=== PATIENT | female | born 1950 | race Caucasian/White ===

== ENCOUNTER 2020-01-01 10:37 | Day surgery (SDC) | payer MEDICARE, OTHER ==
[2019-12-30 16:03] VITALS: BMI 36.8
[2020-01-01] MEDS ORDERED: LACTATED RINGERS 1,000 ML IV ONE ×2 (11:16→14:27)
[2020-01-01] MEDS ORDERED: LIDOCAINE 1% (10MG/ML) FOR IV START IV ONE (11:16)
[2020-01-01] MEDS ORDERED: ONDANSETRON 4 MG/2 ML VIAL IVP ONE (11:20)
[2020-01-01] MEDS ORDERED: DEXAMETHASONE SOD PHOSPHATE 4 MG/ML 1 ML VIAL IVP ONE (11:21)
[2020-01-01] MEDS ORDERED: ONDANSETRON 4 MG/2 ML VIAL ONE (11:23)
[2020-01-01 11:51] LABS: Basophils % (A) 1 %; Eosinophils # (A) 0.1 k/uL (0-0.7); Eosinophils % (A) 2 %; HCT 37.9 % (34.0-46.0); HGB 12.3 gm/dL (11.4-16.0); Lymphocytes # (A) 1.1 k/uL (1.0-4.8); Lymphocytes % (A) 24 %; MCH 31.7 pg (25.0-35.0); MCHC 32.5 g/dL (31.0-37.0); MCV 97.6 fL (80.0-100.0); Mean Platelet Volume 9.4; Monocytes # (A) 0.3 k/uL (0-1.0); Monocytes % (A) 5 %; Neutrophils # (A) 3.1 k/uL (1.3-7.7); Neutrophils % (A) 66 %; Platelet Count 153 k/uL (150-450); RBC 3.89 m/uL (3.80-5.40); RDW 14.2 % (11.5-15.5); WBC 4.7 k/uL (3.8-10.6)
[2020-01-01 11:58] LABS: Calcium 9.1 mg/dL (8.4-10.2); Potassium 4.5 mmol/L (3.5-5.1)
[2020-01-01] MEDS ORDERED: PHENAZOPYRIDINE 200 MG TAB PO STA (12:30)
[2020-01-01] MEDS ORDERED: LIDOCAINE 1% INJ 10MG/ML (20 ML MDV) ONE (12:51)
[2020-01-01] MEDS ORDERED: fentaNYL (PF) 50 MCG/ML 2 ML AMP ONE (12:51)
[2020-01-01] MEDS ORDERED: SUCCINYLCHOLINE CHLORIDE 100 MG/5 ML SYR IV ONE (12:51)
[2020-01-01] MEDS ORDERED: MIDAZOLAM 2 MG/2 ML VIAL ONE (12:51)
[2020-01-01] MEDS ORDERED: HYDROmorphone (PF) 1 MG/ML ONE (12:51)
[2020-01-01] MEDS ORDERED: PROPOFOL 10 MG/ML 20 ML VIAL IV ONE (12:51)
[2020-01-01] MEDS ORDERED: FUROSEMIDE 10 MG/ML 2 ML VIAL ONE (12:51)
[2020-01-01] MEDS ORDERED: LIDOCAINE 0.5%-EPI 1:200,000 50 ML VIAL SUBMUCOSAL ONE ×2 (13:34)
[2020-01-01] MEDS ORDERED: BACITRACIN ZINC 500 UNIT/GM OINT 28.4 GM TUBE TOPICAL ONE ×2 (14:12→15:49)
[2020-01-01] MEDS: fentaNYL (PF) 50 MCG/ML 2 ML AMP IVP ONE ×4 (16:13→16:33)
[2020-01-01] MEDS ORDERED: MORPHINE SULFATE 2 MG/ML SYRINGE IVP PRN (16:22)
[2020-01-01] MEDS ORDERED: ONDANSETRON 4 MG/2 ML VIAL IVP PRN (16:26)
[2020-01-01] MEDS ORDERED: IBUPROFEN 600 MG TAB PO PRN (16:30)
[2020-01-01] MEDS ORDERED: diphenhydrAMINE 50 MG/ML 1 ML VIAL IVP ONE (16:37)
--- NOTE | 2020-01-01 16:55 | P.OP ---
Description of Procedure: PREOPERATIVE DIAGNOSES: 1.Stage 3 Utero Vaginal Prolapse. 2. Mixed Incontinence (ISD + Detrusor Instability) POSTOPERATIVE DIAGNOSES: 1. same. PROCEDURE PERFORMED: Total Vaginal Hysterectomy /Anterior / Posterior Repair / Sacrospinous Ligament suspension / TVT Sling. SURGEON: Michael Contreras MD [employer] SALESPERSON: IRIS ANESTHESIA: General. IV FLUIDS: Crystalloids. BLOOD LOSS: 150 ml. DRAINS: Hurd catheter with clear urine at the end of the procedure and a suprapubic catheter FINDINGS: Overies and tubes normal matrha in a high position and therefore not removed. SPECIMEN: Uterus and cervix. COMPLICATIONS: None. DISPOSITION: Postanesthetic Care Unit. DESCRIPTION OF PROCEDURE: The patient was taken to the operating room. General anesthesia was administered. She was placed in dorsal lithotomy position, prep and drape done in sterile fashion. 10 mL of 0.5% Lidocaine with 1:200,000 strength epinephrine was injected into the vaginal mucosa around the cervix. The decision was made with a Bovie cautery around the cervix at the junction of the vaginal mucosa. Curved Mejia scissors were used to gently dissect the anterior vaginal cervical space and the bladder was pushed up and a [place] retractor was placed to protect the bladder. Similar procedure was done on the posterior side of the cervix and the peritoneu m was entered with blunt dissection and a longbilled heavy weighted speculum was inserted to protect the rectum. Halley clamps were placed on the uterosacral ligaments these were cut and suture ligated and held with hemostats. Next the cardinal ligaments, the uterine vessels, and the tubo-ovarian round ligaments were all clamped cut and suture ligated. The ovaries were normal in size and visualization however and affixed high position and therefore were not amenable to removal vaginally. The pedicles were dry with good hemostasis. A pursestring stitch of 2-0 Vicryl was then placed to close the peritoneum. 10 mL of 0.5% Lidocaine with 1:200,000 strength epinephrine was injected into the anterior vaginal mucosa for hemostasis and to assist in dissection. A midline incision was made on the anterior vaginal mucosa from the mid-urethra to the apex. Allis clamps were placed on the edges and Metzenbaum scissors were used to separate the mucosa from the underlying tissue bilaterally. 2-0 Vicryl suture material was used to plicate the pubovesical fascia in the midline using a number of interrupted sutures. This corrected the midline defect but the patient also had bilateral paravaginal defects and therefore a vaginal paravaginal repair was done by plicating the lateral paravaginal fascia to the lateral sidewall high at the Arcus Tendineous area on each side using 2 to 3 sutures on each side. This thereby reduced the anterior vaginal wall bulge. A small incision was made on each side of the midline at the suprapubic area. With a vaginal finger to assist, the sling needles were then passed through stab incision through the facia to enter into the prevesical space to enter into the vagina lateral to the mid urethra. This was done bilaterally. The Proline mesh tape was then connected to the end of each needle and drawn back through the vaginal incision and out of the suprapubic incisions thereby placing the mesh under the mid urethra. Tension of the mesh was adjusted and the plastic sheath over the mesh was then removed. The ends of the mesh at the suprapubic incisions were trimmed below the skin surface and a 3-O Vicryl stitch was used to close the stab wound. Cystourethroscopy was performed verifying no injury to the urethra and bladder. Both ureters were found to be functioning well with good efflux bilaterally with the help of PO Pyridium Dye given data collection technician to OR and 10 mg of IV Lasix. Excess anterior vaginal mucosa was trimmed and the mucosa was then repaired with 2-0 Vicryl suture in a running fashion. A suprapubic catheter was placed and anchored. A horizontal incision was made on the posterior vaginal mucosa at the level of the hymen. The Rectovaginal space was entered and a vertical incision was made through the posterior vaginal mucosa and the Rectovaginal Septum to the apex. The large enterocele was opened and a purse string suture of 2-[address] high in a purse string fashion to close the enterocele. A second stitch was place for added security and the enterocele sac was excised with cautery. The right rectal pillar was bluntly dissected through. The bowel was retracted medially and the bladder retracted anteriorly with Briesky-Navratil retractors. The right Ischial spine and Sacrospinous ligament was identified and the ligament was grasped on its inferior border, two finger breaths medial to the ischial spine with an Allis clamp. A Capio ligature device was used to place two sutures of 0 Proline through the ligament at this level. One end of each of the Proline sutures were then fixed to the vaginal apex in a multiple helical fashion. The rectovaginal septum was closed with 2-0 Vicryl down 2/3 length of the vagina. The mucosa was trimmed and the mucosa was then closed 2/3 length of the vagina with 2-0 Vicryl. The Proline sutures were then tied thereby elevating the vaginal vault to the Sacrospinous ligament. The remainder of the rectovaginal septum was then closed to the perineum. The mucosa was closed to the mucocutaneous junction. Demarest stitches were placed on the perineum to build up support and then the skin of the perineum was closed. A bacitracin ointment-soaked vaginal packing was placed. The patient tolerated the procedure well. Sponge, lab, and needle counts were correct x 2. She was sent to postanesthetic recovery room in good condition
[2020-01-01] MEDS ORDERED: METOPROLOL SUCCINATE (ER) 25 MG TAB.ER.24H PO STA (19:56)
[2020-01-01] MEDS: HYDROcodone/APAP 5-325MG 1 EACH TAB PO PRN (20:03)
[2020-01-02] MEDS: LACTATED RINGERS 1,000 ML IV SCH ×3 (02:39→09:10)
[2020-01-02] MEDS ORDERED: LEVOTHYROXINE 50 MCG TAB PO SCH (06:30)
[2020-01-02] MEDS ORDERED: PANTOPRAZOLE 40 MG TABLET PO SCH (07:30)
[2020-01-02] MEDS ORDERED: SPIRONOLACTONE 25 MG TAB PO SCH (09:00)
[2020-01-02] MEDS ORDERED: METOPROLOL SUCCINATE (ER) 50 MG TAB.ER.24H PO SCH (09:00)
[2020-01-02] MEDS ORDERED: TORSEMIDE 20 MG TAB PO SCH (09:00)
[2020-01-02] MEDS: HYDROcodone/APAP 5-325MG 1 EACH TAB PO PRN (09:09)
[2020-01-02 12:46] VITALS: BP 103/49; PULSE 93; RESP 16; TEMP 96.9
--- NOTE | 2020-01-02 12:49 | P.DS ---
Providers Attending physician: Michael Contreras MD Patient was admitted 01/01/2024 surgery for her uterovaginal prolapse and mixed urinary incontinence (stress urinary incontinence plus detrusor instability). She underwent a vaginal hysterectomy anterior and posterior repair sacral spinous ligament vaginal vault suspension and a TVT sling. Cystoscopy was done verifying no injury to the urethra or bladder and both ureters were functional bilaterally. A suprapubic catheter was placed. Final examination at the end of the procedure showed an excellent repair without any residual defects, she had good length and width to the vagina. Patient has long-term chronic history of atrial fibrillation and is on Xarelto toe at home which was discontinued 3 days prior to the surgery. She had atrial fibrillation along with normal sinus rhythm and the women's unit felt uncomfortable. For her without telemetry. I reviewed I got a cardiac consult ation and they recommended giving her a dose of her beta fiona to bring her rhythm down a bit but other than that they felt that she was quite stable and did not require anything else cardiac-cochran. The patient has done very well on his and feels well she only received 1 dose of morphine and 2 tablets this morning of Herman for pain. She is eating and drinking her urinary output is good her vital signs are stable. She has not yet urinated on her own. She was taught how to run a urinary diary and to write down the time of urination, how much she voided on her own, and how much came from the catheter. She was taught how to use the catheter by moving the lever on the 3-way stopcock and making sure to turn it off once it was completely drained. She'll be sent home with 30 tablets of Herman 5 mg. She was told to take 2 tablets every 6 hours and then can wean down to 1 tablet every 4- 6 hours and can take regular Tylenol if needed for instead of the Herman for mild pain. She will be discharged home today in good condition she will follow-up by calling the office in 3 days (Monday01/06/20) with with a report of her voids and residuals. She has a 4 week postop appointment for examination already. Consults: 01/01/20 19:24 Consult Physician Routine Consulting Provider: Rahel Romo Consult Reason/Comments: A-Fib Do you want consulting provider notified?: Yes Primary care physician: Physician Nonstaff Plan - Discharge Summary Discharge Rx Participant: No New Discharge Prescriptions: New Torsemide [Demadex] 20 mg PO DAILY tab HYDROcodone/APAP 5-325MG [Herman 5-325] 2 each PO Q6HR PRN 3 Days #30 tab PRN Reason: Pain Continue Rivaroxaban [Xarelto] 20 mg PO 1700 Multivitamins, Thera [Multivitamin (formulary)] 1 tab PO DAILY Metoprolol Succinate [Toprol XL] 50 mg PO BID Levothyroxine Sodium [Synthroid] 50 mcg PO QAM Furosemide [Lasix] 20 mg PO DAILY Vitamin B Complex 1 each PO DAILY Spironolactone 25 mg PO QAM Omeprazole 20 mg PO QAM Ferrous Sulfate [Iron] 325 mg PO DAILY Cider Vinegar [Apple Cider Vinegar] 300 mg PO DAILY Discharge Medication List Cider Vinegar [Apple Cider Vinegar] 300 mg PO DAILY 12/30/19 [History] Ferrous Sulfate [Iron] 325 mg PO DAILY 12/30/19 [History] Furosemide [Lasix] 20 mg PO DAILY 12/30/19 [History] Levothyroxine Sodium [Synthroid] 50 mcg PO QAM 12/30/19 [History] Metoprolol Succinate [Toprol XL] 50 mg PO BID 12/30/19 [History] Multivitamins, Thera [Multivitamin (formulary)] 1 tab PO DAILY 12/30/19 [History] Omeprazole 20 mg PO QAM 12/30/19 [History] Rivaroxaban [Xarelto] 20 mg PO 1700 12/30/19 [History] Spironolactone 25 mg PO QAM 12/30/19 [History] Vitamin B Complex 1 each PO DAILY 12/30/19 [History] HYDROcodone/APAP 5-325MG [Herman 5-325] 2 each PO Q6HR PRN 3 Days #30 tab 01/02/20 [Rx] Torsemide [Demadex] 20 mg PO DAILY tab 01/02/20 [Rx] Follow up Appointment(s)/Referral(s): Michael Contreras MD [STAFF PHYSICIAN] - 4 Weeks (Pt. to call office on 03/07/19 to read voids and residual amounts.) Discharge Disposition: HOME SELF-CARE
--- NOTE | 2020-01-02 13:06 | P.CRDCN ---
History of Present Illness Consult date: 01/02/20 Consult reason: atrial fibrillation Chief complaint: Status post vaginal hysterectomy and bladder sling History of present illness: This is a pleasant 69-year-old female who follows with a parking analyst out of Dr. Glendy South. She has a documented history of hypertension, hyperlipidemia, PAD with prior SFA stenting, hypothyroidism, paroxysmal atrial fibrillation on Xarelto for anticoagulation at home, no documented coronary artery disease, cardiac cath was performed in 2012 which did not reveal any significantly obstructive coronary artery disease. Patient also has a history of chronic congestive heart failure, prior history of smoking for which the patient states she quit 7 years ago, obstructive sleep apnea, and prior cardioversions. Patient is status post vaginal hysterectomy and bladder sling. Cardiology consultation was requested because of atrial fibrillation with moderately rapid rate through the night. This morning the patient continues to be in atrial fibrillation, her heart rate in the 80s. pressure 102/40, heart rate 88, 94% on room air. White blood cell count 4.7, hemoglobin 12.3, platelet count 153. Sodium 139, potassium 4.5, BUN 27, creatinine 1.0. Patient's home medications include Estrace, iron supplementation, metoprolol sesame and 8-100 mg daily, Xarelto 20 mg daily Aldactone 25 mg daily and Demadex 25 mg daily. The patient's home medications have been resumed here, however her dose of metoprolol is 50 mg daily. At the time of my examination, patient actually feels well, she is complaining of some mild discomfort in her abdomen, but denies any shortness of breath, no palpitations, no chest discomfort or dizziness. 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 History of Any Multi-Drug Resistant Organisms: None Reported Past Surgical History: Back Surgery, Cholecystectomy, Heart Catheterization, Tonsillectomy Additional Past Surgical History / Comment(s): Partial Thyroidectomy, 2 stents in left leg 02/2019, cardioversion. Past Anesthesia/Blood Transfusion Reactions: No Reported Reaction Past Psychological History: No Psychological Hx Reported Smoking Status: Former smoker Past Alcohol Use History: None Reported Additional Past Alcohol Use History / Comment(s): Quit smoking 7 yrs ago. Past Drug Use History: None Reported - Past Family History Mother Family Medical History: Cancer Additional Family Medical History / Comment(s): Pancreatic Cancer. Brother(s) Family Medical History: Cancer Additional Family Medical History / Comment(s): Pancreatic cancer. Medications and Allergies Home Medications Medication Instructions Recorded Confirmed Type Cider Vinegar [Apple Cider Vinegar] 300 mg PO DAILY 12/30/19 01/01/20 History Ferrous Sulfate [Iron] 325 mg PO DAILY 12/30/19 01/01/20 History Furosemide [Lasix] 20 mg PO DAILY 12/30/19 01/01/20 History Levothyroxine Sodium [Synthroid] 50 mcg PO QAM 12/30/19 01/01/20 History Metoprolol Succinate [Toprol XL] 50 mg PO BID 12/30/19 01/01/20 History Multivitamins, Thera [Multivitamin 1 tab PO DAILY 12/30/19 01/01/20 History (formulary)] Omeprazole 20 mg PO QAM 12/30/19 01/01/20 History Rivaroxaban [Xarelto] 20 mg PO 1700 12/30/19 01/01/20 History Spironolactone 25 mg PO QAM 12/30/19 01/01/20 History Vitamin B Complex 1 each PO DAILY 12/30/19 01/01/20 History HYDROcodone/APAP 5-325MG [Sanford 2 each PO Q6HR PRN 3 Days #30 tab 01/02/20 Rx 5-325] Torsemide [Demadex] 20 mg PO DAILY tab 01/02/20 Rx Allergies Allergy/AdvReac Type Severity Reaction Status Date / Time codeine Allergy Rash/Hives Verified 01/01/20 11:08 Penicillins Allergy Rash/Hives Verified 01/01/20 11:08 Physical Exam Vitals: Vital Signs Temp Pulse Resp BP Pulse Ox 01/02/20 11:30 96.9 F L 93 16 103/49 98 01/02/20 08:40 97.3 F L 87 18 120/64 99 01/02/20 04:00 97.0 F L 88 17 102/48 94 L 01/02/20 00:00 98.1 F 108 H 18 135/89 100 01/01/20 21:36 98.0 F 118 H 16 133/69 99 01/01/20 20:21 98.2 F 124 H 16 130/72 01/01/20 19:51 98.4 F 119 H 16 135/74 01/01/20 19:21 98.2 F 116 H 17 121/77 95 01/01/20 18:51 107 H 16 118/62 91 L 01/01/20 18:21 106 H 16 142/71 01/01/20 18:06 105 H 16 123/67 100 01/01/20 17:51 106 H 17 131/65 97 01/01/20 17:36 97.7 F 117 H 18 138/74 100 01/01/20 17:01 90 16 139/67 99 01/01/20 16:46 100 16 140/83 96 01/01/20 16:30 98 16 172/86 100 01/01/20 16:15 105 H 16 146/79 100 01/01/20 16:04 97.0 F L 100 16 141/82 95 Intake and Output 01/01/20 01/02/20 01/02/20 22:59 06:59 14:59 Intake Total 300 1125 240 Output Total 1925 300 Balance -1625 825 240 Intake: IV 300 Intake, IV Titration 1125 Amount Lactated Ringers 1,000 ml 1125 @ 125 mls/hr IV .Q8H [facility] Rx#:[id number] Oral 240 Output: Urine 1900 300 Uretheral (Hurd) 150 Post Void Residual 0 Estimated Blood Loss 25 Other: Voiding Method Indwelling Catheter Indwelling Catheter Weight 96.479 kg PHYSICAL EXAMINATION: GENERAL: See 9-year-old female in no acute distress at the time of my examination HEENT: Head is atraumatic, normocephalic. Pupils equal, round. Sclera anicteric. Conjunctiva are clear. Mucous membranes of the mouth are moist. Neck is supple. There is no elevated jugular venous pressure. No carotid bruit is heard. HEART EXAMINATION: S1 and S2 irregularly irregular a soft systolic murmur is heard CHEST EXAMINATION: Lungs are clear to auscultation and precussion. No chest wall tenderness is noted on palpation or with deep breathing. ABDOMEN: Soft, mild generalized tenderness . Bowel sounds are heard. No organomegaly noted. EXTREMITIES: 2+ peripheral pulses with no evidence of peripheral edema and no calf tenderness noted. NEUROLOGIC patient is awake, alert and oriented 3 . Results 01/01/20 11:17 01/01/20 11:17 Current Medications Generic Name Dose Route Start Last Admin Trade Name Freq PRN Reason Stop Dose Admin Hydrocodone Bitart/Acetaminophen 2 each 01/01/20 16:24 01/02/20 09:09 Hydrocodone/Apap 5-325mg 1 Each Tab PO 2 each Q6HR PRN Administration Pain Lactated Ringer's 1,000 mls @ 125 mls/hr 01/01/20 20:30 01/02/20 09:10 Lactated Ringers IV 125 mls/hr .Q8H CHRISTOS Administration Ibuprofen 600 mg 01/01/20 16:30 Ibuprofen 600 Mg Tab PO QID PRN Moderate Pain Levothyroxine Sodium 50 mcg 01/02/20 06:30 01/02/20 06:35 Levothyroxine 50 Mcg Tab PO 50 mcg DAILY@0630 CHRISTOS Administration Metoprolol Succinate 50 mg 01/02/20 09:00 01/02/20 09:08 Metoprolol Succinate (Er) 50 Mg Tab.Er.24h PO 50 mg DAILY CHRISTOS Administration Morphine Sulfate 2 mg 01/01/20 16:22 01/01/20 17:53 Morphine Sulfate 2 Mg/Ml Syringe IVP 2 mg Q4H PRN Administration Pain/Discomfort Ondansetron HCl 4 mg 01/01/20 16:26 Ondansetron 4 Mg/2 Ml Vial IVP Q6HR PRN Nausea And Vomiting Pantoprazole Sodium 40 mg 01/02/20 07:30 01/02/20 06:35 Pantoprazole 40 Mg Tablet PO 40 mg [id number] CHRISTOS Administration Rivaroxaban 20 mg 01/02/20 17:30 Rivaroxaban 20 Mg Tab PO W/SUPPER CHRISTOS Spironolactone 25 mg 01/02/20 09:00 01/02/20 09:08 Spironolactone 25 Mg Tab PO 25 mg DAILY CHRISTOS Administration Torsemide 20 mg 01/02/20 09:00 01/02/20 11:51 Torsemide 20 Mg Tab PO 20 mg DAILY CHRISTOS Administration Intake and Output 01/01/20 01/02/20 01/02/20 22:59 06:59 14:59 Intake Total 300 1125 240 Output Total 1925 300 Balance -1625 825 240 Intake: IV 300 Intake, IV Titration 1125 Amount Lactated Ringers 1,000 ml 1125 @ 125 mls/hr IV .Q8H [facility] Rx#:[id number] Oral 240 Output: Urine 1900 300 Uretheral (Hurd) 150 Post Void Residual 0 Estimated Blood Loss 25 Other: Voiding Method Indwelling Catheter Indwelling Catheter Weight 96.479 kg 01/01/20 11:17 01/01/20 11:17 EKG Interpretations (text) EKG shows atrial fibrillation with controlled ventricular response Assessment and Plan Plan: Assessment and plan #1 atrial fibrillation with rapid ventricular response, rate under good control today, paroxysmal. #2 history of paroxysmal atrial fibrillation with prior cardioversions in the past #3 status post vaginal hysterectomy and bladder sling #4 hypertension #5 hyperlipidemia #6 PAD with prior SFA stenting #7 hypothyroidism #8 no documented coronary artery disease, patient did undergo cardiac catheterization in 2012 which did not reveal any significant obstructive coronary artery disease #9 chronic diastolic congestive heart failure #10 prior history of smoking #11 obstructive sleep apnea Plan Patient had an echocardiogram with Doppler study performed in July 2018 which revealed an ejection fraction of 45-50%, mild MR and TR. We will obtain an echocardiogram with Doppler study and continue the patient on her current medications including anticoagulation with xarelto. DNP note has been reviewed, I agree with a documented findings and plan of care. Patient was seen and examined.
[2020-01-02] MEDS ORDERED: RIVAROXABAN 20 MG TAB PO SCH (17:30)
== END 2020-01-02 15:42 | disposition home or self-care (01) ==
LOC: OR 10:37 → 4FBP 16:34 → 3SCARD 22:21 → OR 01-02 15:42
PROVIDERS: ATTEND Obstetrics & Gynecology
DX: N81.3 Complete uterovaginal prolapse (principal); D25.1 Intramural leiomyoma of uterus; N36.42 Intrinsic sphincter deficiency (ISD); N80.0 Endometriosis of uterus; N39.46 Mixed incontinence; N39.8 Other specified disorders of urinary system; I48.0 Paroxysmal atrial fibrillation; I11.0 Hypertensive heart disease with heart failure; I50.33 Acute on chronic diastolic (congestive) heart failure; I73.9 Peripheral vascular disease, unspecified; E89.0 Postprocedural hypothyroidism; I25.2 Old myocardial infarction; D64.9 Anemia, unspecified; M19.90 Unspecified osteoarthritis, unspecified site; K76.9 Liver disease, unspecified; G89.29 Other chronic pain; M54.5 Low back pain; G47.33 Obstructive sleep apnea (adult) (pediatric); E78.5 Hyperlipidemia, unspecified; I49.3 Ventricular premature depolarization; I47.1 Supraventricular tachycardia; Z90.49 Acquired absence of other specified parts of digestive tract; Z95.820 Peripheral vascular angioplasty status with implants and grafts; Z98.890 Other specified postprocedural states; Z87.891 Personal history of nicotine dependence; I25.10 Atherosclerotic heart disease of native coronary artery without angina pectoris; I42.9 Cardiomyopathy, unspecified; F40.240 Claustrophobia; K44.9 Diaphragmatic hernia without obstruction or gangrene; Z86.010 Personal history of colon polyps; G62.9 Polyneuropathy, unspecified; Z79.01 Long term (current) use of anticoagulants; Z83.3 Family history of diabetes mellitus; Z82.49 Family history of ischemic heart disease and other diseases of the circulatory system; Z82.61 Family history of arthritis; Z83.79 Family history of other diseases of the digestive system; Z83.6 Family history of other diseases of the respiratory system; Z79.890 Hormone replacement therapy; Z79.1 Long term (current) use of non-steroidal anti-inflammatories (NSAID); Z79.899 Other long term (current) drug therapy; Z88.5 Allergy status to narcotic agent; Z88.0 Allergy status to penicillin
CPT/HCPCS: 86900; 86901; 80048; 85025; 86850; 88307; 57282; 58260; C1771; J1200; J1100; J0690; J2405; J3010; J2270